=== PATIENT | female | born 1950 | race Caucasian/White ===

== ENCOUNTER 2018-08-17 10:43 | Day surgery (SDC) | payer MEDICARE, BC ==
[2018-08-17] MEDS: PHENYLEPHRINE HCL 10% OPHTHAL SOL ONE ×3 (11:17→11:24)
[2018-08-17] MEDS: KETOROLAC/HOME 0.5% SOL LEFTEYE ONE ×3 (11:17→11:25)
[2018-08-17] MEDS: CYCLOPENTOLATE 1% SOL ONE ×3 (11:17→11:24)
[2018-08-17] MEDS: TROPICAMIDE 1% OPHTH SOL ONE ×3 (11:17→11:24)
[2018-08-17] MEDS: MOXIFLOXACIN-HOME SOL LEFTEYE ONE ×2 (11:18→11:21)
[2018-08-17] MEDS: TETRACAINE HCL 0.5 % 1 DROP SOL ONE ×2 (11:25→12:16)
[2018-08-17] MEDS ORDERED: MIDAZOLAM 2 MG/2 ML SOL ONE (11:43)
[2018-08-17] MEDS ORDERED: POVIDONE IODINE 5% SOL ONE (12:08)
[2018-08-17] MEDS ORDERED: BSS W/ 0.5 MG P.F. EPI 1 BOTTLE ONE (12:09)
[2018-08-17] MEDS: LIDOCAINE HCL 2% MPF 10 ML SOL ONE ×2 (12:17→12:19)
[2018-08-17] MEDS ORDERED: ACETAZOLAMIDE 250 MG PO ONE ×2 (12:32→12:45)
[2018-08-17 12:38] VITALS: BP 125/92; PULSE 65; RESP 20; TEMP 98; O2SAT 98
== END 2018-08-17 13:03 | disposition home or self-care (01) | DRG 125 ==
LOC: SURG 10:43
PROVIDERS: ATTEND Ophthalmology
DX: H25.89 Other age-related cataract (principal)
CPT/HCPCS: J2250; A9270-GY